=== PATIENT | female | born 1980 | race Hispanic/Latino ===

== ENCOUNTER 2020-01-02 08:39 | Emergency (ER) | payer OTHER ==
[2020-01-02 08:58] VITALS: BP 140/105
[2020-01-02 09:16] LABS: Bilirubin,Urine NEG (Negative); Blood,Urine NEG (Negative); Color,Urine Yellow (Yellow); Mucus,Urine FEW /HPF; Protein,Urine <15 mg/dL mg/dL (Negative); Urobilinogen,Urine < 2.0 mg/dL (<2.0)
[2020-01-02 09:17] LABS: HCG Qualitative,Urine Negative (Negative)
[2020-01-02 10:36] LABS: Basophils # (Auto) 0.1 K/mm3 (0.0-0.1); Basophils % (Auto) 0.9 % (0.0-1.8); Eosinophils # (Auto) 0.1 K/mm3 (0.0-0.4); Eosinophils % (Auto) 1.2 % (0.0-4.3); Hematocrit 43.9 % (30.3-42.9); Hemoglobin 14.6 gm/dl (10.1-14.3); Lymphocytes # (Auto) 2.1 K/mm3 (1.2-5.4); Lymphocytes % (Auto) 19.6 % (13.4-35.0); Mean Corpuscular HGB Conc 33 % (30-34); Mean Corpuscular Volume 90 fl (79-97); Monocytes # (Auto) 1.1 K/mm3 (0.0-0.8); Monocytes % (Auto) 10.5 % (0.0-7.3); Platelet Count 237 K/mm3 (140-440); Red Blood Count 4.88 M/mm3 (3.65-5.03); Red Cell Distribution Width 13.9 % (13.2-15.2)
--- NOTE | 2020-01-02 10:58 | Emergency Department Report ---
ED Abdominal Pain HPI - General Chief Complaint: Abdominal Pain Stated Complaint: UNABLE TO BREATH CORRECTLY/TENDER ABD PAIN Time Seen by Provider: 01/02/20 09:33 Source: patient Mode of arrival: Ambulatory Limitations: No Limitations - History of Present Illness Initial Comments: Patient is a 39-year-old female presents emergency room with complaints of epigastric abdominal pain that began 2 days ago. She states that that she noticed the pain after eating dinner. She states that she ate chicken, corn, mashed potatoes. She states that the pain has been intermittent sharp pain. She denies any nausea, vomiting, diarrhea, fever, urinary symptoms. She denies any history of any abdominal surgeries. She denies any past medical history allergies to medications. She states her last menstrual cycle was December 13. - Related Data Previous Rx's Medication Instructions Recorded Last Taken Type Famotidine [Pepcid] 40 mg PO QHS #30 tablet 01/02/20 Unknown Rx Allergies Allergy/AdvReac Type Severity Reaction Status Date / Time No Known Allergies Allergy Unverified 01/02/20 08:52 ED Review of Systems ROS: Stated complaint: UNABLE TO BREATH CORRECTLY/TENDER ABD PAIN Other details as noted in HPI Comment: All other systems reviewed and negative ED Past Medical Hx - Past Medical History Previous Medical History?: No - Surgical History Past Surgical History?: Yes Additional Surgical History: tonsillectomy - Social History Smoking Status: Never Smoker Substance Use Type: None - Medications Home Medications: Home Medications Medication Instructions Recorded Confirmed Last Taken Type Famotidine [Pepcid] 40 mg PO QHS #30 tablet 01/02/20 Unknown Rx ED Physical Exam - General Limitations: No Limitations General appearance: alert, in no apparent distress - Head Head exam: Present: atraumatic, normocephalic - Eye Eye exam: Present: normal appearance - ENT ENT exam: Present: mucous membranes moist - Respiratory Respiratory exam: Present: normal lung sounds bilaterally. Absent: respiratory distress, wheezes, rales, rhonchi, stridor, chest wall tenderness, accessory muscle use, decreased breath sounds, prolonged expiratory - Cardiovascular Cardiovascular Exam: Present: regular rate, normal rhythm, normal heart sounds. Absent: systolic murmur, diastolic murmur, rubs, gallop - GI/Abdominal GI/Abdominal exam: Present: soft, tenderness (epigastric, RUQ), normal bowel sounds. Absent: distended, guarding, rebound, rigid - Neurological Exam Neurological exam: Present: alert, oriented X3 - Psychiatric Psychiatric exam: Present: normal affect, normal mood - Skin Skin exam: Present: warm, dry, intact ED Course Vital Signs 01/02/20 08:52 Temperature 98.6 F Pulse Rate 84 Respiratory 18 Rate Blood Pressure 140/105 O2 Sat by Pulse 98 Oximetry ED Medical Decision Making - Lab Data Result diagrams: 01/02/20 09:43 01/02/20 09:43 Lab Results 01/02/20 01/02/20 01/02/20 Range/Units 08:58 09:43 09:43 WBC 10.7 (4.5-11.0) K/mm3 RBC 4.88 (3.65-5.03) M/mm3 Hgb 14.6 H (10.1-14.3) gm/dl Hct 43.9 H (30.3-42.9) % MCV 90 (79-97) fl MCH 30 (28-32) pg MCHC 33 (30-34) % RDW 13.9 (13.2-15.2) % Plt Count 237 (140-440) K/mm3 Lymph % (Auto) 19.6 (13.4-35.0) % [place] % (Auto) 10.5 H (0.0-7.3) % Eos % (Auto) 1.2 (0.0-4.3) % Baso % (Auto) 0.9 (0.0-1.8) % Lymph # 2.1 (1.2-5.4) K/mm3 [place] # 1.1 H (0.0-0.8) K/mm3 Eos # 0.1 (0.0-0.4) K/mm3 Baso # 0.1 (0.0-0.1) K/mm3 Seg Neutrophils % 67.8 (40.0-70.0) % Seg Neutrophils # 7.3 (1.8-7.7) K/mm3 Sodium 142 (137-145) mmol/L Potassium 4.2 (3.6-5.0) mmol/L Chloride 107.1 H (98-107) mmol/L Carbon Dioxide 22 (22-30) mmol/L Anion Gap 17 mmol/L BUN 7 (7-17) mg/dL Creatinine 0.7 (0.7-1.2) mg/dL Estimated GFR > 60 ml/min BUN/Creatinine Ratio 10 % Glucose 105 H (65-100) mg/dL Calcium 9.5 (8.4-10.2) mg/dL Total Bilirubin 0.60 (0.1-1.2) mg/dL AST 16 (5-40) units/L ALT 19 (7-56) units/L Alkaline Phosphatase 77 (35-129) units/L Troponin T < 0.010 (0.00-0.029) ng/mL Total Protein 7.1 (6.3-8.2) g/dL Albumin 4.3 (3.9-5) g/dL Albumin/Globulin Ratio 1.5 % Lipase 17 (13-60) units/L Urine Color Yellow (Yellow) Urine Turbidity Clear (Clear) Urine pH 6.0 (5.0-7.0) Ur Specific [place] 1.019 (1.003-1.030) Urine Protein <15 mg/dl (Negative) mg/dL Urine Glucose (UA) Neg (Negative) mg/dL Urine Ketones Neg (Negative) mg/dL Urine Blood Neg (Negative) Urine Nitrite Neg (Negative) Urine Bilirubin Neg (Negative) Urine Urobilinogen < 2.0 (<2.0) mg/dL Ur Leukocyte Esterase Sm (Negative) Urine WBC (Auto) 4.0 (0.0-6.0) /HPF Urine RBC (Auto) 3.0 (0.0-6.0) /HPF U Epithel Cells (Auto) 12.0 (0-13.0) /HPF Urine Mucus Few /HPF Urine HCG, Qual Negative (Negative) - EKG Data EKG shows normal: sinus rhythm, intervals Rate: normal - EKG Data 01/02/20 11:38 LAD LAFB poor R wave progression non specific T wave inversion in V1 and V2 NO STEMI - Radiology Data Radiology results: report reviewed LIMITED RUQ ABDOMINAL ULTRASOUND INDICATION: epigastric and RUQ abd pain. COMPARISON: No relevant prior imaging study available. FINDINGS: Pancreas: Poorly visualized. Abdominal Aorta: No significant abnormality. IVC: No significant abnormality. Liver: Coarsening and increased hepatic echogenicity consistent with fatty infiltration.. Gallbladder: Normal. Sonographic Elias's sign: Not performed. Bile ducts: Normal. Common bile duct measures 4 mm. Free fluid: None. Additional Findings: None. IMPRESSION: 1. Fatty infiltration of the liver. Signer Name: Jose Suazo MD Signed: 01/02/2020 10:58 AM Workstation Name: [id number] Transcribed By: QUINN Dictated By: Jose Suazo MD Electronically Authenticated By: Jose Suazo MD Signed Date/Time: 01/02/20 1058 DD/ 56 TD/TT: - Medical Decision Making Patient is a 39-year-old female presents emergency room with complaints of epigastric abdominal pain that began 2 days ago. She states that that she noticed the pain after eating dinner. She states that she ate chicken, corn, mashed potatoes. She states that the pain has been intermittent sharp pain. S he denies any nausea, vomiting, diarrhea, fever, urinary symptoms. She denies any history of any abdominal surgeries. She denies any past medical history allergies to medications. She states her last menstrual cycle was December 13. On exam: Epigastric and right upper quadrant tenderness to palpation, no guarding, no rebound, normal bowel sounds, no rigidity, no peritoneal signs. Labs are stable. UA without evidence of UTI. EKG with LAD, LAFB, poor R wave progression, non specific T wave inversion in V1 and V2, NO STEMI. troponin is negative. Ultrasound of the right upper quadrant 1. Fatty infiltration of the liver. Patient given Maalox, Pepcid, Levsin and symptoms improved and patient w as feeling much better. Patient is tolerating p.o. intake without difficulty. Discussed all results with patient. Patient will be referred to a GI doctor for further evaluation. Patient given prescription for Pepcid. Advised patient Please take medication as prescribed. Please follow the diet for acid reflux and ulcers. Please follow-up with a GI doctor. Please follow-up with her primary care doctor. Return to emergency room for any new or worsening symptoms. - Differential Diagnosis Cholelithiasis, cholecystitis, PUD, GERD, pancreatitis, ACS, SBO Critical care attestation.: If time is entered above; I have spent that time in minutes in the direct care of this critically ill patient, excluding procedure time. ED Disposition Clinical Impression: Hepatic steatosis Abdominal pain Qualifiers: Abdominal location: epigastric Qualified Code(s): R10.13 - Epigastric pain Disposition: DC-01 TO HOME OR SELFCARE Is pt being admited?: No Does the pt Need Aspirin: No Condition: Stable Instructions: Diet for Ulcers and Gastritis (ED), Non-Alcoholic Fatty Liver Disease (ED), Abdominal Pain (ED) Additional Instructions: Please take medication as prescribed. Please follow the diet for acid reflux and ulcers. Please follow-up with a GI doctor. Please follow-up with her primary care doctor. Return to emergency room for any new or worsening symptoms. Prescriptions: Famotidine [Pepcid] 40 mg PO QHS #30 tablet Referrals: [facility] [Provider Group] - 3-5 Days MIRNA WANG MD [Staff Physician] - 3-5 Days [facility] [Provider Group] - 3-5 Days Time of Disposition: 11:39 Print Language: SPANISH
[2020-01-02 10:59] LABS: Alanine Aminotransferase 19 units/L (7-56); Albumin 4.3 g/dL (3.9-5); BUN/Creatinine Ratio 10; Blood Urea Nitrogen 7 mg/dL (7-17); Calcium 9.5 mg/dL (8.4-10.2); Hemolysis Index 61
--- NOTE | 2020-01-02 11:03 | Ultrasound Report ---
LIMITED RUQ ABDOMINAL ULTRASOUND INDICATION: epigastric and RUQ abd pain. COMPARISON: No relevant prior imaging study available. FINDINGS: Pancreas: Poorly visualized. Abdominal Aorta: No significant abnormality. IVC: No significant abnormality. Liver: Coarsening and increased hepatic echogenicity consistent with fatty infiltration.. Gallbladder: Normal. Sonographic Elias's sign: Not performed. Bile ducts: Normal. Common bile duct measures 4 mm. Free fluid: None. Additional Findings: None. IMPRESSION: 1. Fatty infiltration of the liver. Signer Name: Jose Suazo MD Signed: 01/02/2020 10:58 AM Workstation Name: [id number]
[2020-01-02] MEDS: HYOSCYAMINE SUBL 0.125 MG TAB SL ONE (11:06)
[2020-01-02] MEDS: ALUM-MAG HYDROXIDE-SIMETHICONE 200-200-20MG/5ML ORAL LIQD 30 ML PO ONE (11:06)
[2020-01-02] MEDS: FAMOTIDINE 20 MG TAB PO ONE (11:06)
== END 2020-01-02 12:29 | disposition home or self-care (01) ==
LOC: ED 08:39
DX: K76.0 Fatty (change of) liver, not elsewhere classified (principal); Z98.890 Other specified postprocedural states; Z79.899 Other long term (current) drug therapy
CPT/HCPCS: 36415; 76705; 80053; 81001; 81025; 83690; 84484; 85025; 93005